=== PATIENT | female | born 1945 | race Caucasian/White ===

== ENCOUNTER → 2016-10-27 | Outpatient (CLI) | payer OTHER ==
[~2016-10-27] MED LIST: ALPRAZOLAM 0.0.25 M1 PO; AMITRIPTYLINE H50 M2 GT; CLEOCIN HCL300 MG PO; CYCLOBENZAPRINE10 MG PO; EFFEXOR75 MG PO; IBUPROFEN 200200 M1 PO; LISINOPRIL40 MG PO; LORTAB 7.5/5001 TA3 PO; NORCO 5-325 TA1 EACH PO; OMEPRAZOLE20 MG PO; TRAMADOL 50 MG50 MG PO
== END ==
LOC: RAD 01:06
DX: Z12.31 Encounter for screening mammogram for malignant neoplasm of breast (principal)

== ENCOUNTER → 2018-01-17 | Outpatient (CLI) | payer OTHER | LOC: RAD 11:07 | DX: Z12.31 Encounter for screening mammogram for malignant neoplasm of breast (principal) ==

== ENCOUNTER → 2020-08-12 | Outpatient (CLI) | payer OTHER | LOC: SJCVCIMAG 07:55 | PROVIDERS: ATTEND Internal Medicine | DX: I08.3 Combined rheumatic disorders of mitral, aortic and tricuspid valves (principal); R93.1 Abnormal findings on diagnostic imaging of heart and coronary circulation; I10 Essential (primary) hypertension; E78.5 Hyperlipidemia, unspecified; R00.2 Palpitations; I65.23 Occlusion and stenosis of bilateral carotid arteries; K21.9 Gastro-esophageal reflux disease without esophagitis; M10.9 Gout, unspecified; M19.90 Unspecified osteoarthritis, unspecified site; Z90.710 Acquired absence of both cervix and uterus; Z90.49 Acquired absence of other specified parts of digestive tract; Z88.8 Allergy status to other drugs, medicaments and biological substances; Z79.899 Other long term (current) drug therapy; Z87.891 Personal history of nicotine dependence; Z82.49 Family history of ischemic heart disease and other diseases of the circulatory system ==

== ENCOUNTER → 2020-09-30 | Outpatient (CLI) | payer OTHER ==
[~2020-09-30] MED LIST changes: +ASA81BEC PO; +FENOFIBRATE160 MG PO; +FEOSOL325 M1 PO; +LOSARTAN POTASS50 MG PO; +MELATONIN10 M3 PO; +NORVASC10 MG PO; +OMEPRAZOLE 20 M20 M1 PO; -OMEPRAZOLE20 MG PO; +VITAMIN C500 MG PO; +VITAMIN D310 MCG PO; +[UNRECOGNIZED DRUG - OTHER] PO
[2020-09-30 11:35] LABS: HEMATOCRIT 34.5 % (37.0-47.0); HEMOGLOBIN 11.8 gm/dL (12.0-15.0); MCH 30.8 pg (26.0-34.0); MCHC 34.2 g/dL (28.0-37.0); MCV 90.2 fL (80.0-100.0); RBC 3.83 mil/uL (4.20-5.00); RDW 13.3 % (10.5-14.5); WBC 6.3 thou/uL (4.0-11.0)
[2020-09-30 11:38] LABS: URINE BILIRUBIN NEGATIVE (Negative); URINE BLOOD NEGATIVE (Negative); URINE CLARITY CLEAR; URINE COLOR YELLOW; URINE GLUCOSE-RANDOM* NEGATIVE (Negative); URINE KETONES NEGATIVE (Negative); URINE LEUKOCYTES-REFLEX NEGATIVE (Negative); URINE NITRITE-REFLEX NEGATIVE (Negative); URINE PROTEIN (DIPSTICK) NEGATIVE (Negative); URINE SPECIFIC GRAVITY >= 1.030 (1.005-1.035); URINE UROBILINOGEN 0.2 E.U./dl (0.2-1.0)
[2020-09-30 11:43] LABS: CALCIUM 9.2 mg/dL (8.5-10.1); CREATININE 1.1 mg/dL (0.6-1.0); POTASSIUM 4.3 mmol/L (3.5-5.1)
[2020-09-30 11:48] LABS: INR 1.03; PROTIME 11.2 Seconds (10.5-12.1)
== END ==
LOC: PAC 10:44
PROVIDERS: ATTEND Orthopaedic Surgery
DX: M17.11 Unilateral primary osteoarthritis, right knee (principal)

== ENCOUNTER 2020-10-13 08:14 | Inpatient (IN) | payer OTHER ==
[~2020-10-13] VITALS: Ht 157.5 cm; Wt 68.0 kg
[2020-10-13 09:37] VITALS: BP 143/59
[2020-10-13 13:06] VITALS: BP 120/58
--- NOTE | 2020-10-13 14:01 | NUR ---
Pt transferred to unit from PACU. Pt c/o pain in right knee. Prn pain medication administered. Dressing c/d/i. Ice pack in place. AMIE hose and SCDs in place. IVF infusing. Hospital doctor consulted. Family at bedside. Call light within reach. Fall precautions in place. Will continue to monitor.
--- NOTE | 2020-10-13 15:36 | NUR ---
ASSESSMENT: CM REVIEWED CHART AND SPOKE WITH PATIENT AND HER SON AT THE BEDSIDE. PT IS ALERT AND ORIENTED X4. PT IS S/P RIGHT TKR. PT REPORTS THAT SHE LIVES IN A HOUSE AND SON LIVES WITH HER. PT REPORTS HAVING A RAMP TO ENTER. PT STATES SHE HAS A CANE AND WALKER AT HOME TO ASSIST IF NEEDED. PT REPORTS HAVING A GRAB BAR IN THE SHOWER. PT REPORTS ALL HER NEEDS ARE ON THE MAIN LEVEL BUT HER WASHER AND DRYER ARE IN THE BASEMENT WITH A FULL FLIGHT OF STEPS BUT SON CAN ASSIST. PT REPORTS THAT SHE HAS HAD HH IN THE PAST BUT UNSURE THE AGENCY. PT REPORTS NO PREFERENCE OF HH AGENCY AND [facility] CM NOTIFIED LIASON FROM [facility] WHO WILL REVIEW AND MEET WITH PATIENT IN AM. CM WILL CONTINUE TO FOLLOW.
[2020-10-13 18:22] VITALS: BP 112/50
[2020-10-13 18:58] VITALS: BP 122/48
--- NOTE | 2020-10-14 01:38 | NUR ---
ASSESSED AT START OF SHIFT. PT A&OX4 C/O PAIN MANAGED WITH PO HYDROCODONE. IV INTACT AND FLUIDS INFUSING. CLEAR LUNGS SOUNDS. ICE PACK ON RT KNEE. VOIDS APPROPRIATELY. TEDHOSE IN PLACE, SCD'S INTACT. NO FURTHER SIGNS OF DISCOMFORT. WILL CONT TO MONITOR.
[2020-10-14 03:57] VITALS: BP 127/68
[2020-10-14 05:45] LABS: ABSOLUTE NEUTROPHILS 5.3 thou/uL (1.4-8.2); EOSINOPHILS 0.6 % (0.0-3.0); HEMATOCRIT 25.3 % (37.0-47.0); HEMOGLOBIN 8.6 gm/dL (12.0-15.0); LYMPHOCYTES 17.1 % (24.0-44.0); MCH 30.8 pg (26.0-34.0); MCHC 33.9 g/dL (28.0-37.0); MCV 90.8 fL (80.0-100.0); PLATELET COUNT 224 thou/uL (150-400); POLYS 73.3 % (36.0-66.0); RBC 2.79 mil/uL (4.20-5.00); RDW 13.5 % (10.5-14.5); WBC 7.2 thou/uL (4.0-11.0)
[2020-10-14 06:03] LABS: CALCIUM 8.1 mg/dL (8.5-10.1); POTASSIUM 3.8 mmol/L (3.5-5.1)
[2020-10-14 06:53] VITALS: BP 108/55
--- NOTE | 2020-10-14 07:22 | O ---
[facility] [place] [address] OPERATIVE REPORT Name: MEHREEN RAYGOZA Room #: 434-P [facility]#: [id number] Admission: 10/13/20 Attend Phys: Barry Gonzalez MD Discharge: Date of : 43 Report #: [id number] THIS REPORT FOR: cc: Thomas Seymour MD, Jerad MD Clymer,Barry Brunson MD ~ DATE OF SERVICE: 10/13/2020 PREOPERATIVE DIAGNOSIS: End-stage degenerative arthritis, right knee. POSTOPERATIVE DIAGNOSIS: End-stage degenerative arthritis, right knee. PROCEDURE: Right total knee arthroplasty. SURGEON: Barry Gonzalez MD INDICATIONS: This still fit and active 75-year-old female complains of progressive right knee pain. Clinical exam and x-rays confirm moderately severe degenerative arthritis with moderate varus malalignment and [id number] contact. She has tried conservative measures without much benefit. She has decided to go ahead with right total knee arthroplasty. DESCRIPTION OF PROCEDURE: The patient was taken to the operating room where she was placed under general anesthesia. A femoral nerve block was also applied. Prophylactic intravenous antibiotics were administered. Thigh tourniquet was applied and inflated to 300 mmHg. The right knee was meticulously prepped and draped. An anterior longitudinal skin incision was made and carried through the medial retinaculum. The patella was reflected laterally. Marked degenerative change in all three compartments was noted. The Carr and Nephew knee system was utilized. Intramedullary guides were used on both the femur and the tibia. The femur was cut in 5 degrees of valgus and the tibia cut perpendicular to the long axis of the bone. This improved the moderately severe varus malalignment. The femur was best suited for a size 4 femoral component. The tibia was also best suited for a size 4 tibial component. A trial reduction was performed and an 11 mm polyethylene insert fit nicely and seemed to stabilize the knee and allow full knee extension and flexion beyond 130 degrees. The patella surface was resected and a 32 mm patellar button fit nicely. The trial components were removed. The intramedullary canal was blocked with bone block on both the femoral and tibial sides. Methyl methacrylate cement was mixed and injected into the porous surface of the proximal tibia. The Carr and Nephew size 4 Fernanda II nonporous tibial baseplate was applied. This was impacted into position. Excess cement was removed around its margin. The size 11 mm Legion cruciate-retaining polyethylene insert was snapped into place. It seated nicely and appeared to be secure. A size 4 right cruciate-retaining Legion porous femoral component was applied. Some cement was placed at the distal locking holes where the bone is mildly osteoporotic. This component also seated nicely [address] [address] OPERATIVE REPORT Name: MEHREEN RAYGOZA Room #: 434-P [facility] Terri Herr#: [id number] Admission: 10/13/20 Attend Phys: Barry Gonzalez MD Discharge: Date of : 43 Report #: [id number] and appeared to be secure. A 32 mm patellar button using the Fernanda II Carr and Nephew component was selected. This was placed into the patella with appropriate anchor holes and secured with a patellar clamp until the cement had hardened. All excess cement was removed from around its margin. At this point, the components appeared to be stable and tracking nicely. The knee demonstrated full knee extension and flexion beyond 130 degrees. The tourniquet was deflated after a total tourniquet time of 51 minutes. A single Hemovac was left in the wound exiting through a separate stab incision. The fascia was closed with multiple #1 Vicryl sutures. The subcutaneous tissues were closed with 0 Monocryl. The skin was closed with skin analy. A sterile dressing was applied. The patient was awakened and returned to recovery room in good condition. <ELECTRONICALLY SIGNED> By: Barry Gonzalez MD 10/14/20 0722 1051 1114 aBrry Gonzalez MD /nt
[2020-10-14 11:18] VITALS: BP 108/55
--- NOTE | 2020-10-14 12:53 | NUR ---
ON-GOING ASSESSMENT- CM REVIEWED CHART AND SPOKE WITH PATIENT. CM NOTIFIED PATIENT THAT [facility] RECEIVED REFERRAL AND WILL BE ABLE TO ACCEPT AT THE TIME OF DISCHARGE. LIASON FROM [facility] FOLLOWING. AWAITING TO SEE HOW PATIENT DOES WITH THERAPY THIS AFTERNOON. CM WILL CONTINUE TO FOLLOW TO ASSIST NEEDED.
[2020-10-14 17:05] VITALS: BP 116/49
[2020-10-14 18:51] VITALS: BP 129/53
[2020-10-15 03:55] VITALS: BP 116/43
--- NOTE | 2020-10-15 04:14 | NUR ---
ASSUMED PT CARE AT 1900.PT C/O PAIN TO HER R KNEE,MANAGED WITH MED.UP WITH ASSIST TO THE BSC WITH GB AND WALKER,PT STILL HAVING A HARD TIME MOVING HER R LEG.NO BM NOTED SO FAR.DRSG TO HER R KNEE WITH MIN DRAINAGE,ICE BAG IN PLACE.CALL LIGHT WITHIN REACH.
[2020-10-15 05:08] LABS: HEMATOCRIT 24.4 % (37.0-47.0); HEMOGLOBIN 8.4 gm/dL (12.0-15.0); MCHC 34.4 g/dL (28.0-37.0); MCV 90.1 fL (80.0-100.0); RBC 2.71 mil/uL (4.20-5.00); RDW 13.4 % (10.5-14.5); WBC 9.2 thou/uL (4.0-11.0)
[2020-10-15 07:10] VITALS: BP 122/54
--- NOTE | 2020-10-15 08:05 | D ---
[facility] [place] [address] DISCHARGE SUMMARY Name: MEHREEN RAYGOZA Room #: 434-P [facility] M.R.#: [id number] Admission: 10/13/20 Attend Phys: Barry Gonzalez MD Discharge: Date of : 43 Report #: [id number] THIS REPORT FOR: cc: Thomas Seymour MD, Jerad MD Clymer,Barry Brunson MD ~ DATE OF SERVICE: 10/14/2020 FINAL DIAGNOSES: 1. End-stage degenerative arthritis, right knee. 2. Postoperative anemia. OPERATION: Right total knee arthroplasty. HISTORY: This fit, active and independent 75-year-old female presents with progressive right knee pain and deformity. She is admitted for right total knee arthroplasty. HOSPITAL COURSE: The patient was admitted and taken to the operating room on 10/13/2020, she underwent right total knee arthroplasty, which she tolerated well. Postoperatively, she had some problems with nausea and mild anemia with hemoglobin of 8.6. Her dressing is dry. The Hemovac has been removed. She is beginning therapy on 10/14/2020 and hopes for discharge home late today with family assistance. Pending her progress with therapy today, we may be able to proceed with a discharge home today or tomorrow. DISCHARGE MEDICATIONS: Include alprazolam 0.25 mg at bedtime, Effexor 75 mg daily, tramadol 50 mg 1 or 2 tablets q.4-6 hours., hydrocodone 10 mg 1 q.6 hours p.r.n. pain, Xarelto 10 mg daily, ferrous sulfate 325 mg daily, losartan 50 mg daily, amlodipine 10 mg daily, vitamin D 10 mg daily, melatonin 10 mg daily. I have asked the patient or family to call me if there are any problems or questions. I would anticipate home physical therapy as needed. Her 2 daughters will be available for assistance as long as necessary. We will see how she progresses today with therapy in the hospital and discharge either this evening or tomorrow pending her progress. They will call if any problems and I will plan to see her back in my office in 1 week for her first followup visit. <ELECTRONICALLY SIGNED> By: Barry Gonzalez MD 10/15/20 0805 5 0726 Barry Gonzalez MD /nt
--- NOTE | 2020-10-15 11:22 | NUR ---
ON-GOING ASSESSMENT: CM REVIEWED CHART. PT WORKED WITH PHYSICAL THERAPY THIS AM. PT WILL WORK AGAIN WITH THEM THIS AFTERNOON TO DETERMINE IF SHE FEELS SAFE FOR HOME. CM WILL CONTINUE TO FOLLOW TO ASSIST NEEDED. [facility] FOLLOWING AND CAN ACCEPT AT THE TIME OF DISCHARGE.
--- NOTE | 2020-10-15 13:05 | NUR ---
ASSUMED PT CARE THIS AM. PT A&OX4, ABLE TO MAKE NEEDS KNOWN. PT COMPLAINS OF PAIN IN THE RIGHT KNEE THAT RESPONDS WELL TO PAIN MEDICATION GIVEN PER EMAR. PATIENT REMAINS CONTINENT, UP TO THE BEDSIDE COMMODE WITH ASSIST. IV REMAINS PATENT, SALINE LOCKED. PATIENT REPORTS NO NUMBNESS, TINGLING, OR NAUSEA. FALL PRECAUTIONS ARE IN PLACE, CALL LIGHT WITHIN REACH.
[2020-10-15 15:00] VITALS: BP 112/66
[2020-10-15 16:58] LABS: HEMATOCRIT 25.6 % (37.0-47.0); HEMOGLOBIN 8.8 gm/dL (12.0-15.0)
[2020-10-15 20:15] VITALS: BP 107/67
--- NOTE | 2020-10-15 21:55 | NUR ---
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 IF THERE IS ANY REASON WHY SHE WILL NOT DC TOMORROW HE WANTS TO BE NOTIFIED.REPORT GIVEN TO THE NURSE TAKING OVER PT'S CARE.PT LEFT WITH ALL HER PERSONAL BELONGINGS.
[2020-10-15 22:12] VITALS: BP 115/47
[2020-10-16 00:45] VITALS: BP 119/46
[2020-10-16 03:20] LABS: HEMATOCRIT 21.7 % (37.0-47.0); HEMOGLOBIN 7.7 gm/dL (12.0-15.0); MCH 31.6 pg (26.0-34.0); MCHC 35.6 g/dL (28.0-37.0); MCV 88.9 fL (80.0-100.0); RBC 2.44 mil/uL (4.20-5.00); RDW 13.3 % (10.5-14.5); WBC 7.2 thou/uL (4.0-11.0)
[2020-10-16 04:45] VITALS: BP 150/61
--- NOTE | 2020-10-16 07:34 | NUR ---
PATIENTS CARES WERE ASSUMED AFTER A TRANSFER FROM [facility]., PATIENT HAD A TOTAL KNEE AND WENT INTO AFIB AND RVR. CARDIAC MEDS IVP WAS GIVEN. ROUNDS WERE MADE. THE BED ALARM WAS ON. THE BED IS IN A LOW AND LOCKED POSITION.
[2020-10-16 08:00] VITALS: BP 131/60
[2020-10-16] MEDS ORDERED: CARDIZEM CD240 M1 PO (08:28)
--- NOTE | 2020-10-16 09:40 | EKG ---
[place] [address] [employer] 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 : 1945 Requested By: Matheus Sage Order Number: [id number] MD: George Diop Measurements Intervals [place] Rate: 134 P: ND: QRS: -11 QRSD: 102 T: 118 QT: 312 QTc: 466 Interpretive Statements Sinus rhythm with paroxysmal atrial fibrillation Repolarization abnormality, prob rate related Poor R wave progression Compared to ECG 10/06/2009 10:52:12 Paroxysmal atrial fibrillation is now present Electronically Signed On 10-16-2020 9:40:00 CDT by George Diop [email or web address] <ELECTRONICALLY SIGNED> By: George Diop MD, [facility] 10/16/20 0940 03 03 George Diop MD, [facility] /EPI
[2020-10-16 11:07] VITALS: BP 118/51
[2020-10-16 11:11] VITALS: BP 108/55
--- NOTE | 2020-10-16 11:11 | NUR ---
Pt to D/C w/ [facility] , [facility] provided assistance
[2020-10-16 11:40] VITALS: BP 110/45
[2020-10-16] MEDS ORDERED: XARELTO10 MG PO (14:55)
[2020-10-16] MEDS ORDERED: NORCO 10-325 T1 EACH PO (14:55)
[2020-10-16] MEDS ORDERED: FERREX 150 PLU1 EAC1 PO (14:55)
--- NOTE | 2020-10-16 18:44 | NUR ---
PATIENT RECEIVED DC ORDERS TO HOME WITH HH, SEE PHYSICIANS REPORTS. DC PAPERWORK DISCUSSED WITH PATIENT, EDUCATION GIVEN, PATIENT VERBALIZED UNDERSTANDING. IV REMOVED FROM RIGHT FA, NO BLEEDING NOTED. RAHEEL DRESSING IN PLACE ON RIGHT KNEE. NO BLEEDING OR SIGNS OF INFECTION NOTED ATT. PATIENT REPORTS HAVING A WALKER AT HOME AND WILL BE LEAVING BY PRIVATE VEHICLE WITH FAMILY. VSS. PT A/O X4.
== END 2020-10-16 19:45 | disposition home health service (06) | DRG 470 ==
LOC: OR 08:14 → TBA 08:19 → OR 08:47 → EDSTATUS 10:53 → PRE 12:10 → 4S 13:02 → 2N 13:03 → OR 13:03 → 4S 13:03 → OR 15:23 → 2N 10-15 13:00
PROVIDERS: Hospitalist; ADMIT Orthopaedic Surgery; ATTEND Orthopaedic Surgery
PROC: 0SRC0J9 Replacement of Right Knee Joint with Synthetic Substitute, Cemented, Open Approach (ICD-10-PCS; principal; 2020-10-13)
PROC: 3E0T3BZ Introduction of Anesthetic Agent into Peripheral Nerves and Plexi, Percutaneous Approach (ICD-10-PCS; 2020-10-14)
PROC: 30233N1 Transfusion of Nonautologous Red Blood Cells into Peripheral Vein, Percutaneous Approach (ICD-10-PCS; 2020-10-16)
DX: M17.11 Unilateral primary osteoarthritis, right knee (principal); D62 Acute posthemorrhagic anemia; I48.20 Chronic atrial fibrillation, unspecified; I10 Essential (primary) hypertension; E78.5 Hyperlipidemia, unspecified; F32.9 Major depressive disorder, single episode, unspecified; F41.9 Anxiety disorder, unspecified; K21.9 Gastro-esophageal reflux disease without esophagitis; M79.7 Fibromyalgia; I48.0 Paroxysmal atrial fibrillation; I35.0 Nonrheumatic aortic (valve) stenosis; Z88.2 Allergy status to sulfonamides; Z90.710 Acquired absence of both cervix and uterus; Z87.891 Personal history of nicotine dependence; Z90.49 Acquired absence of other specified parts of digestive tract; Z79.82 Long term (current) use of aspirin; Z79.899 Other long term (current) drug therapy
CPT/HCPCS: 10081; 10102; 50010; 50101; 50415; 50954; 51130; 51225; 51412; 56525; 57095; 57103; 57104; 57180; 58449; 62110; 62900; 64039; 70005

== ENCOUNTER → 2020-11-27 | Outpatient (CLI) | payer OTHER ==
[~2020-11-27] MED LIST changes: +CARDIZEM CD240 M1 PO; +FERREX 150 PLU1 EAC1 PO; +NORCO 10-325 T1 EACH PO; +XARELTO10 MG PO
== END ==
LOC: SJCVC 13:45
PROVIDERS: ATTEND Internal Medicine
DX: R94.31 Abnormal electrocardiogram [ECG] [EKG] (principal); I48.0 Paroxysmal atrial fibrillation; I35.0 Nonrheumatic aortic (valve) stenosis; I10 Essential (primary) hypertension; E78.5 Hyperlipidemia, unspecified; I65.23 Occlusion and stenosis of bilateral carotid arteries; R93.1 Abnormal findings on diagnostic imaging of heart and coronary circulation; K21.9 Gastro-esophageal reflux disease without esophagitis; M19.90 Unspecified osteoarthritis, unspecified site; M10.9 Gout, unspecified; F32.9 Major depressive disorder, single episode, unspecified; I25.10 Atherosclerotic heart disease of native coronary artery without angina pectoris; Z82.49 Family history of ischemic heart disease and other diseases of the circulatory system; Z79.82 Long term (current) use of aspirin; Z87.891 Personal history of nicotine dependence; Z79.899 Other long term (current) drug therapy

== ENCOUNTER 2020-12-28 12:25 | Emergency (ER) | payer OTHER ==
[~2020-12-28] VITALS: Ht 157.5 cm; Wt 68.0 kg
[2020-12-28 14:22] LABS: HEMATOCRIT 31.6 % (37.0-47.0); HEMOGLOBIN 10.4 gm/dL (12.0-15.0); MCHC 32.8 g/dL (28.0-37.0); MCV 85.4 fL (80.0-100.0); RBC 3.7 mil/uL (4.20-5.00); RDW 15.1 % (10.5-14.5); WBC 3.9 thou/uL (4.0-11.0)
[2020-12-28 14:49] LABS: CALCIUM 9.2 mg/dL (8.5-10.1); CREATININE 0.8 mg/dL (0.6-1.0)
[2020-12-28 14:59] LABS: ALBUMIN 3.5 g/dL (3.4-5.0); TOTAL BILIRUBIN 0.3 mg/dL (0.2-1.0)
[2020-12-28 15:10] LABS: URINE BILIRUBIN NEGATIVE (Negative); URINE BLOOD NEGATIVE (Negative); URINE CLARITY CLEAR; URINE COLOR YELLOW; URINE GLUCOSE-RANDOM* NEGATIVE (Negative); URINE KETONES NEGATIVE (Negative); URINE LEUKOCYTES-REFLEX NEGATIVE (Negative); URINE NITRITE-REFLEX NEGATIVE (Negative); URINE PROTEIN (DIPSTICK) NEGATIVE (Negative); URINE SPECIFIC GRAVITY 1.015 (1.005-1.035); URINE UROBILINOGEN 0.2 E.U./dl (0.2-1.0)
[2020-12-28] MEDS ORDERED: VAZALORE81 MG PO (15:20)
[2020-12-28] MEDS ORDERED: AUGMENTIN 875-1 EACH PO (15:40)
[2020-12-28 15:51] VITALS: BP 145/46
--- NOTE | 2020-12-29 11:26 | EKG ---
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 : 1945 Requested By: Anya Chris Order Number: [id number] MD: Marcelo Garner Measurements Intervals [place] Rate: 48 P: 51 DC: 170 QRS: -24 QRSD: 102 T: 18 QT: 458 QTc: 410 Interpretive Statements Sinus bradycardia Left ventricular hypertrophy Baseline wander in lead(s) V6 Compared to ECG 10/15/2020 20:04:31 Left ventricular hypertrophy now present Sinus rhythm no longer present Atrial fibrillation no longer present Early repolarization no longer present Poor R-wave progression no longer present Electronically Signed On 12-29-2020 11:26:12 CDT by Marcelo Garner [email or web address] <ELECTRONICALLY SIGNED> By: Marcelo Garner MD, FACC 12/29/20 1126 1231 1231 Marcelo Garner MD, FAC /EPI
== END 2020-12-28 15:51 | disposition home or self-care (01) ==
LOC: ER 12:25
PROVIDERS: Nurse Practitioner Family
DX: I10 Essential (primary) hypertension (principal); J32.0 Chronic maxillary sinusitis; F32.9 Major depressive disorder, single episode, unspecified; F41.9 Anxiety disorder, unspecified; I48.91 Unspecified atrial fibrillation; K21.9 Gastro-esophageal reflux disease without esophagitis; M19.90 Unspecified osteoarthritis, unspecified site; Z90.710 Acquired absence of both cervix and uterus; Z90.89 Acquired absence of other organs; Z90.49 Acquired absence of other specified parts of digestive tract; Z79.82 Long term (current) use of aspirin; Z79.899 Other long term (current) drug therapy; Z88.2 Allergy status to sulfonamides

== ENCOUNTER → 2021-02-11 | Outpatient (CLI) | payer OTHER ==
[~2021-02-11] MED LIST changes: +AUGMENTIN 875-1 EACH PO; +VAZALORE81 MG PO
== END ==
LOC: SJCVCIMAG 12-30 07:38
PROVIDERS: ATTEND Internal Medicine
DX: I08.0 Rheumatic disorders of both mitral and aortic valves (principal); I48.0 Paroxysmal atrial fibrillation; R93.1 Abnormal findings on diagnostic imaging of heart and coronary circulation; I35.0 Nonrheumatic aortic (valve) stenosis; I10 Essential (primary) hypertension; E78.5 Hyperlipidemia, unspecified; I65.23 Occlusion and stenosis of bilateral carotid arteries; F32.9 Major depressive disorder, single episode, unspecified; I25.10 Atherosclerotic heart disease of native coronary artery without angina pectoris; K21.9 Gastro-esophageal reflux disease without esophagitis; M10.9 Gout, unspecified; Z87.891 Personal history of nicotine dependence; Z79.82 Long term (current) use of aspirin; Z79.899 Other long term (current) drug therapy; Z88.8 Allergy status to other drugs, medicaments and biological substances; Z88.7 Allergy status to serum and vaccine; Z82.49 Family history of ischemic heart disease and other diseases of the circulatory system